=== PATIENT | male | born 1995 | race Caucasian/White ===

== ENCOUNTER 2016-12-03 08:48 | Emergency (ER) | payer MEDICAID ==
[~2016-12-03] VITALS: Ht 162.6 cm; Wt 44.5 kg
[2016-12-03 08:56] VITALS: BP 120/81; PULSE 77; RESP 18; TEMP 98.1; O2SAT 100
--- NOTE | 2016-12-03 09:00 | NUR ---
Patient to ER bed 4 to gown for evaluation. Side rails up. Report given to Lynda LAZAR.
--- NOTE | 2016-12-03 09:09 | NUR ---
TAKEN TO RADIOLOGY VIA WHEELCHAIR
[2016-12-03 09:23] LABS: BASOPHILS # (AUTO) 0.2 K/uL (0.0-0.2); BASOPHILS % (AUTO) 1.9 % (0.0-2.0); EOSINOPHILS # (AUTO) 0.4 K/uL (0.0-0.4); EOSINOPHILS % (AUTO) 5.5 % (0.0-4.0); HEMATOCRIT 46.2 % (36-54); HEMOGLOBIN 15.5 g/dL (14.0-18.0); LYMPHOCYTES # (AUTO) 1.7 K/uL (1.0-5.5); LYMPHOCYTES % (AUTO) 21.2 % (20.5-51.5); MEAN CORPUSCULAR HEMOGLOBIN 32 pg (27-31); MEAN CORPUSCULAR HGB CONC 34 % (32-36); MEAN CORPUSCULAR VOLUME 94 fL (79.0-98.0); MONOCYTES # (AUTO) 1.4 K/uL (0.0-1.0); MONOCYTES % (AUTO) 16.9 % (1.7-9.3); NEUTROPHILS # (AUTO) 4.4 K/uL (1.8-7.7); NEUTROPHILS % (AUTO) 54.5 % (40.0-70.0); PLATELET COUNT (AUTO) 236 K/uL (130-430); RED BLOOD CELL COUNT(AUTO) 4.92 MIL/uL (4.2-6.2); RED CELL DISTRIBUTION WIDTH 13.1 % (9.0-15.0); WHITE BLOOD COUNT (AUTO) 8.1 K/uL (4.8-10.8)
[2016-12-03 09:30] LABS: CALCIUM 8.8 mg/dL (8.4-11.0); CREATININE 1.39 mg/dL (0.55-1.30); POTASSIUM 3.7 mmol/L (3.5-5.1)
[2016-12-03] MEDS ORDERED: MAG HYDROX/AL HYDROX/SIMETH 30 ML, BELLADONNA ALKALOIDS/PHENOBARB 10 ML, LIDOCAINE VISC... PO ONE ×3 (09:30)
[2016-12-03 09:35] LABS: TOTAL BILIRUBIN 0.2 mg/dL (0.0-1.0); TOTAL PROTEIN, SERUM 7.6 g/dL (6.4-8.3)
[2016-12-03] MEDS ORDERED: MAG-AL HYDROX/SIMETH 30 ML UDC ONE (09:47)
[2016-12-03] MEDS ORDERED: BELLADONNA ALKALOIDS/PHENOBARB 5 ML UDC ONE (09:47)
[2016-12-03] MEDS ORDERED: LIDOCAINE VISCOUS 2%, 15 ML UDC ONE (09:48)
--- NOTE | 2016-12-03 09:52 | NUR ---
PT UP TO RESTROOM FOR URINE SPECIMEN
--- NOTE | 2016-12-03 10:00 | NUR ---
DR VALDEZ AT BEDSIDE FOR EVALUATION
[2016-12-03 10:04] LABS: BILIRUBIN,URINE NEGATIVE (NEGATIVE); BLOOD, URINE NEGATIVE (NEGATIVE); CLARITY/URINE CLEAR (CLEAR); COLOR,URINE YELLOW (YELLOW); GLUCOSE,URINE NEGATIVE (NEGATIVE); KETONES,URINE TRACE (NEGATIVE); LEUKOCYTE ESTERASE ,URINE NEGATIVE (NEGATIVE); NITRITE, URINE NEGATIVE (NEGATIVE); PROTEIN URINE NEGATIVE (NEGATIVE); UROBILINOGEN,URINE 0.2 (0.2-1.0)
[2016-12-03 10:10] VITALS: BP 117/71; PULSE 74; RESP 19; TEMP 98.4; O2SAT 99
--- NOTE | 2016-12-03 10:11 | NUR ---
Patient given written and verbal discharge instructions and verbalizes understanding. ER MD discussed with patient the results and treatment provided. Given copies of tests performed in ER. Patient in stable condition. ID arm band removed. IV catheter removed intact and dressing applied, no active bleeding. Rx of PROTONIX given. Patient educated on pain management and to follow up with PMD. Pain Scale 0/10. Opportunity for questions provided and answered.
== END 2016-12-03 10:10 | disposition home or self-care (01) ==
LOC: SED 08:48
DX: K29.00 Acute gastritis without bleeding (principal)
CPT/HCPCS: 36415; 74000; 80053; 81003; 83690; 85025; 99285; J2001